=== PATIENT | male | born 1975 | race Caucasian/White ===

== ENCOUNTER 2020-03-24 08:49 | Outpatient (CLI) | payer OTHER | END 2020-03-24 23:59 | disposition home or self-care (01) | LOC: LAB.S 08:49 | PROVIDERS: ATTEND Physician Assistant | DX: R50.9 Fever, unspecified (principal) ==

== ENCOUNTER 2021-05-09 14:21 | Outpatient (CLI) | payer OTHER ==
--- NOTE | 2021-05-09 14:54 | XRAY Report ---
PROCEDURE: Lumbar Spine 2 View INDICATIONS: OSTEOARTHRITIS LUMBAR SPINE TECHNIQUE: 3 views of the lumbar spine were acquired. COMPARISON: None. FINDINGS: Bones: 5 [id number] vertebrae are present. There is transitional anatomy with lumbarization of what appears to be the first sacral vertebral body. Prior to any surgical intervention, full x-ray s pine series is recommended for further evaluation and numbering assessment. No vertebral body hiwot maura fractures. No suspicious bony lesions. There is mild to moderate foraminal narrowing noted L5- S1, moderate to severe at S1-S2. Prominent disc space narrowing is also noted at S1-S2. Soft tissues: Overlying bowel gas pattern is normal. No suspicious soft tissue calcifications. IMPRESSION: Transitional anatomy as above with degenerative changes most notable at L5-S1 and S1-S2. Reviewed by: Krista Gallagher MD on 05/09/2021 2:52 PM PDT Approved by: Krista Gallagher MD on 05/09/2021 2:52 PM PDT Station ID: [id number]
== END 2021-05-09 23:59 | disposition home or self-care (01) ==
LOC: DI.S 14:21
PROVIDERS: ATTEND Emergency Medicine
DX: M47.896 Other spondylosis, lumbar region (principal); M48.07 Spinal stenosis, lumbosacral region; M48.08 Spinal stenosis, sacral and sacrococcygeal region

== ENCOUNTER 2023-02-22 08:00 | Outpatient (CLI) | payer OTHER ==
--- NOTE | 2023-02-22 15:25 | XRAY Report ---
PROCEDURE: Chest 2 View X-Ray INDICATIONS: CHEST PAIN TECHNIQUE: 2 views of the chest were acquired. COMPARISON: None. FINDINGS: Surgical changes and devices: None. Lungs and pleura: No pleural effusions or pneumothorax. Lungs are clear. Mediastinum: Mediastinal contours appear normal. Heart size is normal. Bones and chest wall: No suspicious bony lesions. Overlying soft tissues appear unremarkable. IMPRESSION: No acute cardiopulmonary process. Reviewed by: Waldemar Yeboah MD on 02/22/2023 2:24 PM AKDT Approved by: Waldemar Yeboah MD on 02/22/2023 2:24 PM AKDT Station ID: [id number]
[2023-02-22 17:56] LABS: ALBUMIN 4.3 g/dL (3.2-5.5); ALBUMIN/GLOBULIN RATIO 1.4 (1.0-2.2); BILIRUBIN,TOTAL 0.6 mg/dL (0.2-1.0); CALCIUM 9.5 mg/dL (8.5-10.3); POTASSIUM 3.9 mmol/L (3.5-5.0); TOTAL PROTEIN 7.4 g/dL (6.7-8.2)
[2023-02-22 18:10] LABS: THYROID STIMULATING HORMONE 1.14 uIU/mL (0.34-5.60)
== END 2023-02-22 23:59 | disposition home or self-care (01) ==
LOC: DI.S 08:00
PROVIDERS: ATTEND Physician Assistant Medical
DX: R07.89 Other chest pain (principal); R00.2 Palpitations
CPT/HCPCS: 36415; 80053; 82150; 83690; 84443; 84484; 85379

== ENCOUNTER 2024-01-24 13:17 | Emergency (ER) | payer OTHER ==
[2024-01-24 14:09] LABS: BASOPHILS # (AUTO) 0.1 10^3/uL (0.0-0.1); BASOPHILS % (AUTO) 0.8 %; EOSINOPHILS # (AUTO) 0.1 10^3/uL (0.0-0.7); EOSINOPHILS % (AUTO) 0.8 %; HCT - HEMATOCRIT 45.2 % (42.0-52.0); HGB - HEMOGLOBIN 15.7 g/dL (14.0-18.0); LYMPHOCYTES # (AUTO) 2.2 10^3/uL (1.5-3.5); LYMPHOCYTES % (AUTO) 33.2 %; MEAN CORPUSCULAR HEMOGLOBIN 31.5 pg (27.0-31.0); MEAN CORPUSCULAR HGB CONC 34.7 g/dL (32.0-36.0); MEAN CORPUSCULAR VOLUME 90.8 fL (80.0-94.0); MEAN PLATELET VOLUME 10.2 fL (7.4-11.4); MONOCYTES # (AUTO) 0.6 10^3/uL (0.0-1.0); MONOCYTES % (AUTO) 9.6 %; NEUTROPHILS # (AUTO) 3.6 10^3/uL (1.5-6.6); NEUTROPHILS % (AUTO) 55.1 %; PLT - PLATELET COUNT 264 10^3/uL (130-450); RED BLOOD COUNT 4.98 10^6/uL (4.70-6.10); RED CELL DISTRIBUTION WIDTH 11.8 % (12.0-15.0); WHITE BLOOD COUNT 6.5 x10^3/uL (4.8-10.8)
[2024-01-24 14:26] LABS: ALBUMIN 4.5 g/dL (3.2-5.5); BILIRUBIN,TOTAL 0.6 mg/dL (0.2-1.0); CALCIUM 9.8 mg/dL (8.5-10.3); TOTAL PROTEIN 6.8 g/dL (6.4-8.9)
[2024-01-24 14:29] LABS: TROPONIN I HIGH SENSITIVITY 2.7 ng/L (2.3-19.7)
--- NOTE | 2024-01-24 17:38 | ED Physician Documentation ---
PD HPI CHEST PAIN - Stated complaint Stated Complaint: CHEST PX - Chief complaint Chief Complaint: Cardiac - History obtained from History obtained from: Patient, Family - History of Present Illness Timing - onset: How many months ago (4) Timing - onset during: Rest Timing - duration: Minutes, Hours Timing - details: Abrupt onset, Now resolved, Waxing and waning Quality: Pressure Location: Substernal, Epigastric Radiation: Back. No: Jaw, Neck Improved by: Other (time) Worsened by: Other (nothing maybe spicy food) Associated symptoms: No: Shortness of air, Diaphoresis, Nausea, Vomiting, Feeling faint / dizzy, General Weakness, Palpitations, Cough Similar symptoms before: Diagnosis (hiatal hernia) Recently seen: Clinic (seen at urgent care today.) - Additional information Additional information: 48-year-old Shaji Joseph has developed chest pressure that is in episodes lasting 20 minutes to 2 hours over the last 4 months. The episodes do not appear to be related to anything specific. He does have a history of hiatal hernia. He does drink beer. He has not experienced heartburn. He went to the walk-in clinic today with an episode that occurred at 4 AM and lasted 30 minutes and a repeat episode that occurred at 10 AM and lasted 2 hours. 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 He does not get this chest pain related to his work. He does not historically give a exertionally related episode. Review of Systems Constitutional: denies: Fever Eyes: denies: Decreased vision Ears: denies: Ear pain Nose: denies: Congestion Throat: denies: Sore throat Cardiac: reports: Chest pain / pressure. denies: Palpitations, Pedal edema, Calf pain Respiratory: denies: Dyspnea, Cough, Wheezing GI: denies: Abdominal Pain, Nausea, Vomiting, Constipation, Diarrhea : denies: Dysuria, Frequency Skin: denies: Rash Musculoskeletal: denies: Neck pain, Back pain, Extremity pain Neurologic: denies: Generalized weakness, Focal weakness, Numbness PD PAST MEDICAL HISTORY - Past Medical History Past Medical History: No GI: Hiatal hernia Other Past Medical History: former tobacco chewer - Past Surgical History Past Surgical History: No - Present Medications Home Medications: Ambulatory Orders Medication Instructions Recorded Confirmed No Known Home Medications 01/24/24 01/24/24 - Allergies Allergies/Adverse Reactions: Allergies Allergy/AdvReac Type Severity Reaction Status Date / Time No Known Drug Allergies Allergy Verified 01/24/24 13:30 - Social History Does the pt smoke?: No Smoking Status: Never smoker Does the pt drink ETOH?: Yes Does the pt have substance abuse?: No PD ED PE NORMAL - Vitals Vital signs reviewed: Yes - General General: Alert and oriented X 3, No acute distress, Well developed/nourished - HEENT HEENT: Atraumatic, PERRL, EOMI - Neck Neck: Supple, no meningeal sign, No bony TTP - Cardiac Cardiac: RRR, No murmur - Respiratory Respiratory: No respiratory distress, Clear bilaterally - Abdomen Abdomen: Soft, Non tender - Back Back: No CVA TTP - Derm Derm: Normal color, No rash - Extremities Extremities: No deformity, No edema - Neuro Neuro: Alert and oriented X 3, youth specialist 2-12 intact, No motor deficit, No sensory deficit, Normal speech Eye Opening: Spontaneous Motor: Obeys Commands Verbal: Oriented GCS Score: 15 - Psych Psych: Normal mood, Normal affect Results - Vitals Vitals: Vital Signs - 24 hr 01/24/24 01/24/24 13:23 17:44 Temperature 36.7 C 36.1 C L Heart Rate 75 82 Respiratory 18 22 Rate Blood Pressure 151/89 H 155/104 H O2 Saturation 98 96 Oxygen O2 Source Room air - Labs Labs: Laboratory Tests 01/24/24 01/24/24 01/24/24 14:05 14:05 16:36 WBC 6.5 RBC 4.98 Hgb 15.7 Hct 45.2 MCV 90.8 MCH 31.5 H MCHC 34.7 RDW 11.8 L Plt Count 264 MPV 10.2 Neut # (Auto) 3.6 Lymph # (Auto) 2.2 [place] # (Auto) 0.6 Eos # (Auto) 0.1 Baso # (Auto) 0.1 Absolute Nucleated RBC 0.00 Nucleated RBC % 0.0 Sodium 139 Potassium 4.0 Chloride 104 Carbon Dioxide 28 Anion Gap 7.0 BUN 16 Creatinine 1.0 Estimated GFR (MDRD) 79 L Glucose 100 Calcium 9.8 Total Bilirubin 0.6 AST 18 ALT 34 Alkaline Phosphatase 68 Troponin I High Sens 2.7 3.1 Total Protein 6.8 Albumin 4.5 Globulin 2.3 Albumin/Globulin Ratio 2.0 Lipase 28 - Rads (name of study) chest Relevant Findings:: Prelim report reviewed (Impression: No acute cardiopulmonary findings.), EMP independent interpretation of test, See rad report PD Medical Decision Making - ED course Complexity details: considered differential, d/w patient, d/w family ED course: 48-year-old male with a history of intermittent chest pressures and episodes lasting 30 minutes to 2 hours does not have a history consistent with a acute coronary syndrome. He has no exertional component noted he has onset without provocation. Today he has had 2 episodes lasting 30 minutes and 2 hours and we have been able to obtain 2 sets of troponin both of which are negative. I do not suspect coronary syndrome as a reason for this pain since chest pressure. I do suspect he has his pressure secondary to his hiatal hernia and we have recommended administration of acid reducing medications. Departure - Departure Disposition: 01 Home, Self Care Clinical Impression: Atypical chest pain, Hiatal hernia Condition: Stable Instructions: Hiatal Hernia, ED Chest Pain NonCardiac Follow-Up: KEY SARAVIA ARNP [Primary Care Provider] - Martinez Monsivais MD [Provider Admit Priv/Credential] - Comments: Juan J, today the serial troponins we did were both negative. Based on your history and these negative studies the chest pain you are having is not related to your heart. The recommendation for further evaluation of this specific pain is to see the surgeon to have endoscopy done. In the meantime recommendation is to take medication to reduce the acid in your stomach. These are agents that are available over the counter and include Nexium and Pepcid AC. Obtain these today and begin taking them regularly. Forms: PCP List Discharge Date/Time: 01/24/24 17:45
--- NOTE | 2024-01-24 17:44 | XRAY Report ---
PROCEDURE: Chest 1V INDICATIONS: Chest pain TECHNIQUE: One view of the chest was acquired. COMPARISON: None FINDINGS: Surgical changes and devices: None. Lungs and pleura: No pleural effusions or pneumothorax. Lungs are clear. Mediastinum: Mediastinal contours appear normal. Heart size is normal. Bones and chest wall: No suspicious bony lesions. Overlying soft tissues appear unremarkable. IMPRESSION: No acute cardiopulmonary findings Reviewed by: Waldemar Yeboah MD on 01/24/2024 4:43 PM AKDT Approved by: Waldemar Yeboah MD on 01/24/2024 4:43 PM AKDT Station ID: [id number]
[2024-01-24 17:48] VITALS: BP 155/104; O2SAT 96
== END 2024-01-24 17:45 | disposition home or self-care (01) ==
LOC: ED 13:17
DX: R07.89 Other chest pain (principal); K44.9 Diaphragmatic hernia without obstruction or gangrene; Z87.891 Personal history of nicotine dependence
CPT/HCPCS: 36415; 80053; 83690; 84484; 85025; 93005; 99284

== ENCOUNTER 2024-04-01 13:19 | Outpatient (CLI) | payer OTHER ==
--- NOTE | 2024-04-01 17:13 | Ultrasound Report ---
PROCEDURE: Abdomen Limited INDICATIONS: EPIGASTRIC ABD PAIN TECHNIQUE: Real-time focused scanning was performed of the abdomen, with image documentation. COMPARISONS: None. FINDINGS: Liver: Liver is normal in size and homogeneous in echotexture. Gallbladder: 7 mm stone is seen in dependent portion of gallbladder lumen near the neck of gallbladde r. There is no gallbladder wall thickening or pericholecystic fluid. No sonographic Sosa's sign.. Biliary ducts: Intrahepatic bile ducts are non-dilated. Extrahepatic bile duct caliber measures 4.5 mm. Normal is 6-7 mm or less in diameter, or 10 mm or less post-cholecystectomy. Pancreas: Visualized portions of the pancreas are sonographically normal. Right kidney: Normal in size and echotexture. Right kidney measures 11.5 cm long. No hydronephrosis. Echogenic focus is noted in upper pole right kidney measures 7 mm in size. No complex renal cystic l esions which require follow-up. IVC: Intrahepatic inferior vena cava is patent. Miscellaneous: No free abdominal fluid. IMPRESSION: 1. Cholelithiasis without sonographic evidence of acute cholecystitis. No biliary ductal dilatation. 2. Possible nonobstructing stone versus tiny angiomyolipoma in upper pole right kidney suggest clinic al correlation. No hydronephrosis. 3. Rest of the exam is unremarkable. Reviewed by: Stone Sharp MD on 04/01/2024 5:12 PM PDT Approved by: Stone Sharp MD on 04/01/2024 5:12 PM PDT Station ID: [id number]
== END 2024-04-01 13:20 | disposition home or self-care (01) ==
LOC: DI 13:19
PROVIDERS: ATTEND Surgery
DX: R10.13 Epigastric pain (principal); K80.20 Calculus of gallbladder without cholecystitis without obstruction

== ENCOUNTER 2024-05-20 09:17 | Day surgery (SDC) | payer OTHER ==
[2024-05-20] MEDS ORDERED: ceFAZolin 2 GM VIAL ONE (09:30)
[2024-05-20] MEDS: LACTATED RINGERS 1,000 ML IV ONE ×2 (09:46→14:39)
[2024-05-20] MEDS ORDERED: ePHEDrine 50 MG/ML VIAL IVP PRN (11:42)
[2024-05-20] MEDS ORDERED: HYDROmorphone 0.5 MG/0.5 ML SYRINGE IVP PRN ×2 (11:42→14:42)
[2024-05-20] MEDS ORDERED: MORPHINE 2 MG/ML CARPUJECT IVP PRN (11:42)
[2024-05-20] MEDS ORDERED: METOCLOPRAMIDE 10 MG/2 ML VIAL IVP PRN (11:42)
[2024-05-20] MEDS ORDERED: ONDANSETRON 4 MG/2 ML VIAL IVP PRN ×2 (11:42→14:42)
[2024-05-20] MEDS ORDERED: ATROPINE ABBOJECT 1 MG/10 ML SYRINGE IVP PRN (11:42)
[2024-05-20] MEDS ORDERED: NALOXONE 0.4 MG/ML VIAL IVP PRN (11:42)
--- NOTE | 2024-05-20 11:42 | ANESTHESIA ---
Pre-Anesthesia VS, & Labs - Diagnosis chronic cholecytitis - Procedure laparoscopic cholecystectomy Vital Signs: Temp Pulse Resp BP Pulse Ox O2 Flow Rate 36.6 C 66 17 146/89 H 97 05/20/24 09:47 05/20/24 09:47 05/20/24 09:47 05/20/24 09:47 05/20/24 09:47 Height: 6 ft Weight (kg): 105 kg Body Mass Index: 31.4 BMI Classification: Obese - NPO >8 hours - Lab Results Lab results reviewed: Yes Home Medications and Allergies No Known Home Medications 01/24/24 Allergies/Adverse Reactions: Allergies Allergy/AdvReac Type Severity Reaction Status Date / Time No Known Drug Allergies Allergy Verified 05/20/24 09:50 Anes History & Medical History - Anesthetic History Anesthesia Complications: reports: No previous complications Family history of Anesthesia Complications: Denies Family history of Malignant Hyperthermia: Denies - Medical History Cardiovascular: reports: None Pulmonary: reports: None Gastrointestinal: reports: Hiatal hernia, Cholelithiasis Urinary: reports: None Musculoskeletal: reports: Chronic back pain Endocrine/Autoimmune: reports: None Skin: reports: None Smoking Status: Never smoker History of Cancer?: No - Surgical History Other Past Surgical History: wisdom teeth Exam General: Alert, Oriented x3, Cooperative Dental: WNL Mouth Openin Fingerbreadth Neck Mobility: Normal Mallampati classification: II Thyromental Distance: 4-6 cm Respiratory: Lungs clear, Normal breath sounds, No respiratory distress, No accessory muscle use Cardiovascular: Regular rate Abdomen: Other (occ pain, spasm after fatty foods) Neurological: Normal speech Mental/Cognitive Status: Alert/Oriented X3, Normal for patient Plan Anesthesia Type: General Consent for Procedure(s) Verified and Reviewed: Yes Code Status: Attempt Resuscitation ASA classification: 2-Mild systemic disease Is this case an emergency?: No
[2024-05-20] MEDS ORDERED: LACTATED RINGERS 1,000 ML IV SCH (12:00)
[2024-05-20] MEDS ORDERED: MIDAZOLAM 2 MG/2 ML VIAL ONE (12:55)
[2024-05-20] MEDS ORDERED: fentaNYL 100 MCG/2 ML VIAL ONE ×3 (12:56→14:57)
[2024-05-20] MEDS ORDERED: ONDANSETRON 4 MG/2 ML VIAL ONE (12:56)
[2024-05-20] MEDS ORDERED: ROCURONIUM 50 MG/5 ML VIAL ONE ×2 (12:56→14:00)
[2024-05-20] MEDS ORDERED: LIDOCAINE-MPF 2% 5 ML VIAL ONE (12:56)
[2024-05-20] MEDS ORDERED: PROPOFOL 200 MG/20 ML VIAL IVP ONE (12:56)
[2024-05-20] MEDS ORDERED: KETOROLAC 30 MG/ML VIAL ONE (12:56)
[2024-05-20] MEDS ORDERED: DEXAMETHASONE 4 MG/ML VIAL ONE (12:56)
[2024-05-20] MEDS ORDERED: BUPIVACAINE 0.25% PF 30 ML VIAL ONE (13:22)
[2024-05-20] MEDS: BUPIVACAINE 0.25% PF 30 ML VIAL SUBQ ONE (13:34)
[2024-05-20] MEDS ORDERED: SUGAMMADEX 200 MG/2 ML VIAL IVP ONE (14:03)
[2024-05-20] MEDS ORDERED: HYDROcod/ACETAM 5/325 MG TABLET PO PRN (14:42)
[2024-05-20] MEDS ORDERED: ACETAMINOPHEN 1,000 MG/100 ML 1,000 MG/100 ML BAG IV ONE (14:48)
[2024-05-20] MEDS: HYDROmorphone 1 MG/ML CARPUJECT ONE (14:48)
--- NOTE | 2024-05-20 14:48 | OPERATIVE REPORT ---
Operative Report - General Procedure Date: 05/20/24 Planned Procedure: lap josue Pre-Op Diagnosis: chronic cholecystitis Procedure Performed: lap josue Post Op Diagnosis: chronic cholecystitis - Procedure Note Primary Surgeon: ricky cole Anesthesia Technique: General ET tube, Local Pathology: gb Estimated Blood Loss (mL): 2 Drain/Tube Type: Other (none) Indications: gallstone, sludge, attacks of epigastric pain Findings: small cystic duct surrounded by scar tissue Complications: none - Other Other Information/Narrative: The patient was properly identified, brought to the operating room and placed in supine position. Sequential compression devices were placed. General endotracheal anesthesia was induced. The patient was prepped and draped in a sterile fashion and given preoperative antibiotics. Local anesthetic was given to incision areas. An incision was made in the periumbilical area. Dissection proceeded down to fascia. The fascia was incised lifted upwards and abdomen entered with a Veress needle. CO2 was insufflated to a pressure of 15. An 11 mm trocar followed by a 30 degree scope was placed. There was no evidence of injury from Veress needle or trocar placement. Under direct vision 2 5 mm trochars were placed in the right upper quadrant and an 11 mm trocar was placed in the epigastrium. Body of the gallbladder was retracted anterior. Lateral attachments were partially taken down further mobilizing the gallbladder more anterior and away from the duodenum. The infundibulum of the gallbladder was then retracted right lateral and caudad. With minimal use of cautery a large bare cystic plate area or window was carefully created. The cystic duct was inspected from right lateral and left lateral positions. [] The cystic duct was then clipped at the gallbladder and 3 times slightly proximal and sharply divided. The cystic artery was clipped at the gallbladder and then 2 times slightly proximal and sharply divided. The gallbladder was mobilized off from the bed of the liver with hook cautery. The gallbladder was placed in Endo Catch bag and brought out through the epigastric trocar site. Hemostasis was assured. Trochars were removed under direct vision. Fascia at the larger trocar sites was closed with [id number] are running 0 Vicryl suture. Subcutaneous tissue was irrigated and skin closed with interrupted 4-0 Monocryl. Dressings were applied. Patient tolerated the procedure well was awakened and brought to recovery in good condition.
[2024-05-20] MEDS: ACETAMINOPHEN 1,000 MG/100 ML 1,000 MG/100 ML BAG IV ONE (14:52)
[2024-05-20] MEDS: fentaNYL 100 MCG/2 ML VIAL IVP PRN (15:00)
--- NOTE | 2024-05-20 15:05 | ANESTHESIA POST OP EVALUATION ---
Anesthesia Post Eval - Post Anesthesia Eval Vitals: Last Vital Signs Temp 36.5 C 05/20/24 15:00 Pulse 78 05/20/24 15:00 Resp 15 05/20/24 15:00 BP 134/90 H 05/20/24 15:00 Pulse Ox 94 05/20/24 15:00 O2 Flow Rate CV Function Including HR & BP: Stable Pain Control: Satisfactory Nausea & Vomiting: Negative Mental Status: Baseline Respiratory Status: Airway Patent Hydration Status: Satisfactory Anesthesia Complications: None
[2024-05-20] MEDS ORDERED: oxyCODONE 5 MG TABLET ONE (15:39)
[2024-05-20] MEDS: oxyCODONE 5 MG TABLET PO PRN (15:40)
[2024-05-20 16:29] VITALS: BP 119/68; O2SAT 95
== END 2024-05-20 09:18 | disposition home or self-care (01) ==
LOC: SDS 09:17
PROVIDERS: ATTEND Surgery
PROC: 0FT44ZZ Resection of Gallbladder, Percutaneous Endoscopic Approach (ICD-10-PCS; principal; 2024-05-20 10:45)
DX: K80.10 Calculus of gallbladder with chronic cholecystitis without obstruction (principal)
CPT/HCPCS: 47562; A9270; J0131; J1170; J7120